=== PATIENT | female | born 2000 | race Caucasian/White ===

== ENCOUNTER 2021-02-05 03:25 | Emergency (ER) | payer MEDICAID, OTHER ==
[~2021-02-05] VITALS: Ht 165.1 cm; Wt 150.0 kg
[2021-02-05 04:30] LABS: ALBUMIN 4.1 G/DL (3.4-5.0); ANION GAP 14 (8-16); BLOOD UREA NITROGEN 9 MG/DL (7-18); BUN/CREATININE RATIO 11.8 (6.6-38.0); CALCIUM 8.4 MG/DL (8.5-10.1); CHLORIDE 109 MMOL/L (99-107); CREATININE 0.76 MG/DL (0.40-0.90); GLUCOSE 115 MG/DL (70-104); SODIUM 147 MMOL/L (135-145); TOTAL CARBON DIOXIDE 23.9 MMOL/L (24-32); eGFR > 90 ML/MIN
[2021-02-05 04:33] LABS: POTASSIUM 2.9 MMOL/L (3.5-5.1)
[2021-02-05] MEDS: potassium Cl 10 mEq/100mL bag IV SCH ×2 (04:53→05:57)
--- NOTE | 2021-02-05 04:57 | NUR ---
dylanreal [phone]
[2021-02-05] MEDS ORDERED: normal saline 1000ml 1,000 ML IV ONE (05:00)
[2021-02-05 05:34] LABS: MAGNESIUM 2.3 MG/DL (1.5-2.4)
[2021-02-05 07:05] VITALS: BP 100/67
--- NOTE | 2021-02-05 07:06 | NUR ---
pt sleeping quietly but arousable. vss
== END 2021-02-05 09:06 | disposition home or self-care (01) ==
LOC: EDBD 03:26 → ER 03:26
DX: F10.129 Alcohol abuse with intoxication, unspecified (principal); R40.0 Somnolence; E87.6 Hypokalemia; R94.31 Abnormal electrocardiogram [ECG] [EKG]; Y90.8 Blood alcohol level of 240 mg/100 ml or more
CPT/HCPCS: 36415; 80048; 80320; 82948; 83735; 93005; 96365; 96376; 99284; J3480; J7030; 96361; 96366

== ENCOUNTER 2022-08-28 02:51 | Emergency (ER) | payer MEDICAID ==
[~2022-08-28] VITALS: Ht 165.1 cm; Wt 62.0 kg
[2022-08-28] MEDS ORDERED: bacitracin 15gm ointment TP ONE (03:30)
[2022-08-28] MEDS ORDERED: TETanus/Pertussis (Acell)/Diphther VAC/PF (Tdap-Adult) 0.5ml syringe IMVAC ONE (03:30)
--- NOTE | 2022-08-28 04:33 | NUR ---
wound cleaned with 100ml nacl. md farnsworth
--- NOTE | 2022-08-28 04:40 | NUR ---
at bedside for suture repair
[2022-08-28] MEDS ORDERED: ibuprofen tablet 400 MG TABLET PO ONE (04:50)
[2022-08-28] MEDS ORDERED: acetaminophen 325mg tablet PO ONE (04:50)
[2022-08-28] MEDS ORDERED: HYDR-3965 PO (05:31)
[2022-08-28] MEDS ORDERED: morphine 4 MG/ML inj SYRINge IM ONE (08:00)
[2022-08-28] MEDS ORDERED: normal saline 1000ML IV soln IVB ONE (10:55)
--- NOTE | 2022-08-28 12:20 | NUR ---
Pt requested, and received permission from Dr. Swanson, and receiving facility, [facility], to have a friend drive her down to [facility]. T/C to give report to receiving RN in ER. Addendum: 08/28/22 at 1223 by JOSE Bryn stated RN - RN report not necessary.
[2022-08-28 13:15] VITALS: BP 106/57
== END 2022-08-28 13:10 | disposition home or self-care (01) ==
LOC: ER 02:52
DX: S02.69XA Fracture of mandible of other specified site, initial encounter for closed fracture (principal); S01.81XA Laceration without foreign body of other part of head, initial encounter; Z79.899 Other long term (current) drug therapy; W06.XXXA Fall from bed, initial encounter; Y93.89 Activity, other specified; Y92.89 Other specified places as the place of occurrence of the external cause; Y99.8 Other external cause status
CPT/HCPCS: 12013; 70486; 90471; 90715; 96360; 96372; 99285; J2270; J7030

== ENCOUNTER 2022-09-04 08:41 | Emergency (ER) | payer MEDICAID ==
[~2022-09-04] VITALS: Ht 160 cm; Wt 63.0 kg
[~2022-09-04 08:41] MED LIST: HYDR-3965 PO
[2022-09-04 09:01] VITALS: BP 109/61
== END 2022-09-04 10:24 | disposition home or self-care (01) ==
LOC: ER 08:42
DX: S01.81XD Laceration without foreign body of other part of head, subsequent encounter (principal); Z48.00 Encounter for change or removal of nonsurgical wound dressing; X58.XXXD Exposure to other specified factors, subsequent encounter
CPT/HCPCS: 99282